=== PATIENT | female | born 1995 | race Two or more races ===

== ENCOUNTER 2018-05-09 02:59 | Emergency (ER) | payer SELFPAY ==
[~2018-05-09] VITALS: Ht 152.4 cm; Wt 65.8 kg
--- NOTE | 2018-05-09 03:18 | NUR ---
Pt. ambulated into ED w/ male receipt and report clerk s/p fall @ approx. 2100 last night w/ c/o 8 L knee pain, reports slipping at an ice cream parlor and hitting the back of her head while twisting her L knee, denies LOC but states she "felt dizzy after getting up", emesis x1 in the car prior to arrival at ED, denies MORGAN/F/C
[2018-05-09 03:36] LABS: *URINE HCG, QUAL NEGATIVE (NEGATIVE)
--- NOTE | 2018-05-09 04:29 | NUR ---
Patient discharged to home in stable conditon. Written and verbal after care instructions given. Patient verbalizes understanding of instructions. Pt. d/c per MD order, d/c papers signed, all belongings w/ pt., left w/ male pipe installer in private vehicle, ID band removed, left in private vehicle,
== END 2018-05-09 04:33 | disposition home or self-care (01) ==
LOC: ER 03:01
DX: S06.0X0A Concussion without loss of consciousness, initial encounter (principal); M25.572 Pain in left ankle and joints of left foot; W01.0XXA Fall on same level from slipping, tripping and stumbling without subsequent striking against object, initial encounter; Y93.89 Activity, other specified; Y92.89 Other specified places as the place of occurrence of the external cause; Y99.8 Other external cause status
CPT/HCPCS: 70450; 84703; A4663